=== PATIENT | female | born 2000 | race Caucasian/White ===

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

== ENCOUNTER 2022-07-06 15:38 | Emergency (ER) | payer OTHER ==
[2022-07-06 16:15] VITALS: BP 105/60; PULSE 123; RESP 20; TEMP 100.1; BMI 19.1
[2022-07-06] MEDS ORDERED: ONDANSETRON 4 MG/2 ML VIAL IVPUSH ONE (16:59)
[2022-07-06] MEDS ORDERED: SODIUM CHLORIDE 1,000 ML IV STA (16:59)
[2022-07-06] MEDS ORDERED: ONDANSETRON 4 MG/2 ML VIAL ONE (17:23)
[2022-07-06 18:04] LABS: BASO % 0.1 % (0-2.0); EOS % 0.5 % (0-4.5); HEMATOCRIT 36.8 % (32.4-45.2); HEMOGLOBIN 12.4 GM/dL (10.7-15.3); LYMPH % 12.6 % (8-40); MCHC 33.7 g/dl (32.0-36.0); MEAN PLT VOLUME 8.8 fl (7.5-11.1); NEUT % 75.8 % (42.8-82.8); PLATELET COUNT 219 10^3/uL (134-434); RDW 13.7 % (11.6-15.6); WHITE BLOOD COUNT 7.6 K/mm3 (4.0-10.0)
[2022-07-06 18:08] LABS: HCG,QUALITATIVE URINE Negative
[2022-07-06 18:09] LABS: EPI CELLS 33 /uL (0-25.1); HYALINE CASTS 1 /uL (0-3.1); URINE APPEARANCE CLEAR; URINE BACTERIA 736 /uL (0-1359); URINE BILIRUBIN NEGATIVE (NEGATIVE); URINE COLOR YELLOW; URINE GLUCOSE (UA) NEGATIVE (NEGATIVE); URINE KETONE 1+ (NEGATIVE); URINE LEUK ESTERASE 2+ (NEGATIVE); URINE NITRITE NEGATIVE (NEGATIVE); URINE PROTEIN NEGATIVE (NEGATIVE); URINE RBC 11 /uL (0-23.9); URINE UROBILINOGEN 0.2 mg/dL (0.2-1.0); URINE WBC 149 /uL (0-25.8)
[2022-07-06 18:24] LABS: ALBUMIN 3.6 g/dl (3.4-5.0); BLOOD UREA NITROGEN 7.4 mg/dL (7-18); CALCIUM 8.6 mg/dL (8.5-10.1)
[2022-07-06 18:27] LABS: CREATININE 0.8 mg/dL (0.55-1.3)
[2022-07-06 18:29] LABS: BILIRUBIN,TOTAL 0.5 mg/dL (0.2-1); TOT PROT 8.6 g/dl (6.4-8.2)
== END 2022-07-06 18:46 | disposition home or self-care (01) ==
LOC: JER 15:38 → JERFT 15:38
PROC: 3E033GC Introduction of Other Therapeutic Substance into Peripheral Vein, Percutaneous Approach (ICD-10-PCS; principal; 2022-07-06)
DX: N39.0 Urinary tract infection, site not specified (principal)
CPT/HCPCS: 0241U-QW; 36415; 80053; 81003; 83690; 84703; 85025; 87086; 99284-25

== ENCOUNTER 2022-07-09 11:08 | Emergency (ER) | payer OTHER ==
[2022-07-09 11:49] VITALS: BP 103/71; PULSE 82; RESP 19; TEMP 98; BMI 42.2
[2022-07-09] MEDS ORDERED: FAMOTIDINE 20 MG TABLET PO ONE (12:02)
[2022-07-09] MEDS ORDERED: FAMOTIDINE 20 MG TABLET ONE (12:07)
[2022-07-09] MEDS ORDERED: IBUPROFEN 600 MG TABLET (FP) PO ONE (12:37)
[2022-07-09] MEDS ORDERED: MAG HYDROX/AL HYDROX/SIMETH 30 ML UNIT-DOSE CUP PO ONE (14:07)
[2022-07-09] MEDS ORDERED: ACETAMINOPHEN 1000 MG/100 ML BAG IVPB ONE (14:07)
[2022-07-09] MEDS ORDERED: SUCRALFATE 1 GM TABLET (FP) ONE (15:34)
[2022-07-09] MEDS ORDERED: MAG HYDROX/AL HYDROX/SIMETH 30 ML UNIT-DOSE CUP ONE (15:34)
[2022-07-09] MEDS ORDERED: ACETAMINOPHEN 500 MG TABLET (FP) PO ONE (15:41)
[2022-07-09] MEDS ORDERED: ACETAMINOPHEN 325 MG TABLET (FP) ONE (15:42)
[2022-07-09] MEDS ORDERED: SUCRALFATE 1 GM TABLET (FP) PO SCH (22:00)
== END 2022-07-09 17:47 | disposition home or self-care (01) ==
LOC: JER 11:08
PROC: 3E0333Z Introduction of Anti-inflammatory into Peripheral Vein, Percutaneous Approach (ICD-10-PCS; principal; 2022-07-09)
DX: K29.70 Gastritis, unspecified, without bleeding (principal)
CPT/HCPCS: 74176-TC; 76705-TC; 84703; 99285-25